=== PATIENT | male | born 1935 | race Caucasian/White ===

== ENCOUNTER 2016-08-23 08:38 | Day surgery (SDC) | payer BC ==
[2016-08-22 12:58] VITALS: BMI 28.4
[2016-08-23] MEDS ORDERED: LIDOCAINE HCL 1%, 10 MG/ML (20ML VIAL) ONE (10:08)
[2016-08-23] MEDS ORDERED: BUPIVACAINE HCL/PF 0.5% (5MG/ML) 10 ML VIAL ONE ×2 (10:09→10:10)
--- NOTE | 2016-08-23 10:31 | HP ---
History & Physical Update - History History: No Change - Physical Physical: No Change - Assessment Assessment: No Change - Plan Plan: No Change (Here today for electiv erepair of his right inguinal hernia. This is my first time meeting the patient. Introduced myself and informed patient that I will be assisting Dr. cyr. Gloria mendoza with that.)
[2016-08-23] MEDS ORDERED: PROPOFOL 20 ML ONE (10:35)
[2016-08-23] MEDS ORDERED: ceFAZolin SODIUM 1 GM VIAL ONE (10:47)
[2016-08-23] MEDS ORDERED: LIDOCAINE HCL 1%, 10 MG/ML (50 mL VIAL) IJ ONE ×2 (10:53)
[2016-08-23] MEDS ORDERED: ePHEDrine SULFATE 50 MG/1 ML AMPULE ONE (10:53)
[2016-08-23] MEDS ORDERED: BUPIVACAINE HCL/PF (5 MG/ML) 30 ML VIAL IJ ONE ×2 (10:53)
[2016-08-23] MEDS ORDERED: DEXAMETHASONE SOD PHOSPHATE 4 MG/1 ML VIAL ONE (11:21)
[2016-08-23] MEDS ORDERED: KETOROLAC TROMETHAMINE 30 MG/1 ML VIAL ONE (11:42)
[2016-08-23] MEDS ORDERED: ESMOLOL HCL 10 ML ONE (11:52)
--- NOTE | 2016-08-23 12:06 | OP ---
Operative Note - Note: Operative Date: 08/23/16 Pre-Operative Diagnosis: Right inguinal hernia Operation: Open repair right inguinal hernia (indirect), reduced incarcerated preperitnoeal fat, mesh Post-Operative Diagnosis: Same as Pre-op Surgeon: Simón Scherer Frame Repairer: Saqib Renteria Anesthesiologist/TOE POUNDER: Dani Everett Anesthesia: General Specimens Removed: None. Estimated Blood Loss (mls): 5 Fluid Volume Replaced (mls): 800 Operative Report Dictated: Yes
[2016-08-23] MEDS ORDERED: PROMETHAZINE HCL 25 MG/1 ML VIAL IVPUSH PRN (12:07)
[2016-08-23] MEDS ORDERED: oxyCODONE HCL 5 MG TABLET PO PRN (12:07)
--- NOTE | 2016-08-23 12:07 | SURG ---
Surgery Pelletising Extruder Operator Note Pelletising Extruder Operator: Saqib Renteria PA-C Date of Service: 08/23/16 Diagnosis: Right inguinal hernia (indirect) Procedure: Open repair right inguinal hernia (indirect, incarcerated peritoneal fat...viable. reduced). mesh I was present for the entirety of the operative procedure. For further detail, please refer to operative report. Visit type - Case Type Case Type: Scheduled Admission - New patient This patient is new to me today: Yes Date on this admission: 08/23/16
[2016-08-23] MEDS ORDERED: ACETAMINOPHEN 1000 MG/100 ML VIAL (NON FORMULARY) IVPB ONE (12:09)
[2016-08-23] MEDS ORDERED: LACTATED RINGERS SOLUTION 1,000 ML IV SCH (12:15)
[2016-08-23] MEDS ORDERED: ACETAMINOPHEN INJECTION 100 ML IVPB ONE (12:47)
[2016-08-23 14:04] VITALS: TEMP 98.2
[2016-08-23] MEDS ORDERED: oxyCODONE HCL 5 MG TABLET ONE (14:49)
[2016-08-23 16:07] VITALS: BP 149/85; PULSE 84
--- NOTE | 2016-08-24 09:21 | EKG ---
Test Reason : Blood Pressure : / mmHG Vent. Rate : 079 BPM Atrial Rate : 079 BPM P-R Int : 174 ms QRS Dur : 106 ms QT Int : 386 ms P-R-T Axes : 059 -05 038 degrees QTc Int : 442 ms NORMAL SINUS RHYTHM SEPTAL INFARCT , AGE UNDETERMINED INFERIOR INFARCT , AGE UNDETERMINED ABNORMAL ECG NO PREVIOUS ECGS AVAILABLE Confirmed by DEBORAH ZHENG MD ([id number]) on 08/24/2016 9:21:25 AM Referred By: Simón Scherer Confirmed By:DEBORAH ZHENG MD
--- NOTE | 2016-08-26 09:44 | OP ---
DATE OF OPERATION: 08/23/2016 PROCEDURE: Repair right inguinal hernia. PREOPERATIVE DIAGNOSIS: Right inguinal hernia. POSTOPERATIVE DIAGNOSIS: Right inguinal hernia. SURGEON: Simón Scherer MD. MAINTENANCE AND REPAIR WORKER: Saqib Renteria PA-C. ANESTHESIA: General. ESTIMATED BLOOD LOSS: Minimal. DRAINS: None. SPECIMENS: None. OPERATIVE FINDINGS: There was an indirect right inguinal hernia with incarcerated preperitoneal fat as well and a weak floor. The rest of the findings were unremarkable. PROCEDURE: The patient was placed on the operating room table in supine position, and the right groin was prepped with ChloraPrep and draped in sterile fashion. A timeout was taken, and a right groin incision made with a scalpel and taken down through the skin and subcutaneous tissue and David's fascia. The external oblique fascia was opened proximally and distally in the direction of its fibers and through the external ring. The cord structures and nerve were elevated at the level of the pubic tubercle and a Jermaine drain placed around them for retraction and identification purposes. Herniate preperitoneal fat was reduced into the peritoneal cavity and then the sac dissected from the cord structures all the way up to the internal ring. The sac was reduced as well. Next, a piece of Parietex ProGrip mesh was fashioned into the defect and anchored at the pubic tubercle, shelving edge and conjoined tendon respectively with interrupted 2-0 Prolene. A keyhole was created for the cord structures and the tails of the mesh brought above the level of the internal ring and anchored there with interrupted 2-0 Prolene. Hemostasis was checked for and noted to be good, and then the cord structures and nerve were returned to the normal anatomic position. The external oblique fascia was closed over the cord structures using continuous 2-0 Vicryl, recreating the external ring. Hemostasis was verified again, and then the wound was irrigated with normal saline. David's fascia was re-approximated with interrupted 2-0 Vicryl. The deep dermis with 3-0 Vicryl and the skin edges with 4-0 Biosyn in a subcuticular, continuous fashion. Steri-Strips, fluffs and dry sterile dressings were placed and the procedure terminated at this point, and the patient aroused from general anesthesia and transferred to the post-anesthesia care unit in stable condition, awake and alert. I, Simón Scherer, was physically present in the operating room from the time the patient was placed on the operating room table until he was transferred to the post anesthesia care unit in my accompaniment. MD CAROLYNE Peterson/[id number]
== END 2016-08-23 15:50 | disposition home or self-care (01) ==
LOC: JASU-SURG 08:38
PROVIDERS: ATTEND Surgery
PROC: 0YU50JZ Supplement Right Inguinal Region with Synthetic Substitute, Open Approach (ICD-10-PCS; principal; 2016-08-23 10:30)
DX: K40.30 Unilateral inguinal hernia, with obstruction, without gangrene, not specified as recurrent (principal)
CPT/HCPCS: 93005; 93010; 94760